=== PATIENT | female | born 1975 | race Caucasian/White ===

== ENCOUNTER → 2016-10-31 | Outpatient (CLI) | payer BC ==
--- NOTE | 2016-11-01 08:39 | MM ---
Reason for exam: clinical finding. Last mammogram was performed 3 years and 4 months ago. History: Family history of breast cancer in mother at age 57. Taking hormonal contraceptives for 1 year. Physical Findings: Nurse Summary: 0.5cm nodule in the left breast at 6 o'clock (nurse ilana). MG Diagnostic Mammo w CAD CLAY Bilateral CC and MLO view(s) were taken. Prior study comparison: June 19, 2013, bilateral digital screening mammo w/CAD. The breast tissue is heterogeneously dense. This may lower the sensitivity of mammography. No significant new findings when compared with previous films. These results were verbally communicated with the patient and result sheet given to the patient on 10/31/16. ASSESSMENT: Incomplete: need additional imaging evaluation, BI-RAD 0 RECOMMENDATION: Ultrasound of the left breast.
== END | disposition home or self-care (01) ==
LOC: RADMAMWWP 12:39
PROVIDERS: ATTEND Obstetrics & Gynecology
DX: Z12.31 Encounter for screening mammogram for malignant neoplasm of breast (principal)

== ENCOUNTER → 2016-11-04 | Outpatient (CLI) | payer BC ==
--- NOTE | 2016-11-04 11:14 | USB ---
Reason for exam: clinical finding. History: Family history of breast cancer in mother at age 57. Taking hormonal contraceptives for 1 year. Indicated problem(s): palpable abnormality in the left breast. Physical Findings: Nurse Summary: Patient states appointment with Dr. Claros made prior to first mammogram/ultrasound. Patient currently feeling area of "dense" tissue (nurse dw). US Breast Limited LT Left breast ultrasound demonstrates no cystic or solid lesion seen. These results were verbally communicated with the patient and result sheet given to the patient on 11/04/16. ASSESSMENT: Negative, BI-RAD 1 RECOMMENDATION: Routine screening mammogram of both breasts in 1 year. Manage patient on a clinical basis. Back on schedule.
== END | disposition home or self-care (01) ==
LOC: RADUSWWP 10:01
PROVIDERS: ATTEND Surgery
DX: N63 Unspecified lump in breast (principal)

== ENCOUNTER 2017-08-21 08:35 | Day surgery (SDC) | payer BC ==
[2017-08-17 10:39] VITALS: BMI 37.8
--- NOTE | 2017-08-20 18:53 | HP ---
HISTORY AND PHYSICAL REASON FOR ADMISSION: Surgery is scheduled for 08/21/2017. HISTORY OF PRESENT ILLNESS: Marlyn Cannon is a 41-year-old patient seen with left shoulder adhesive capsulitis. Options regarding treatment were discussed with her. She elected to proceed with manipulation under anesthesia left shoulder with steroid injection. Consent was obtained. PAST MEDICAL HISTORY: Asthma. PAST SURGICAL HISTORY: Appendectomy, section. MEDICATIONS: Ortho Tri-Cyclen, , Topamax. ALLERGIES: LAMICTAL, SULFA. SOCIAL HISTORY: Patient denies tobacco use. PHYSICAL EXAMINATION: Evaluation of left shoulder flexion is 100 degrees, abduction 70 degrees, external rotation is -10 degrees of neutral. Tenderness along the rotator cuff insertion site and the acromioclavicular joint. Impingement sign positive 80 degrees. Distal neurovascular exam is intact. RADIOGRAPHS: Left shoulder radiographs revealed a lateral downsloping anterior acromion. MRI left shoulder revealed a partial rotator cuff tear. IMPRESSION: Left shoulder adhesive capsulitis. PLAN: Manipulation under anesthesia, left shoulder steroid injection. scheduled for 08/21/2017. MMODL / IJN: [id number] /
[~2017-08-21 08:35] MED LIST: LACTATED RINGERS 1,000 ML IV SCH; MIDAZOLAM 2 MG/2 ML VIAL IV PRN; MORPHINE SULFATE 4 MG/ML SYRINGE IV PRN; ONDANSETRON 4 MG/2 ML VIAL IVP ONE; ceFAZolin IN SWFI 2 GM/20 ML SYRINGE IVP ONE
[2017-08-21] MEDS ORDERED: MIDAZOLAM 2 MG/2 ML VIAL ONE (09:35)
[2017-08-21] MEDS ORDERED: PROPOFOL 10 MG/ML 20 ML VIAL IV ONE (09:35)
[2017-08-21] MEDS ORDERED: fentaNYL (PF) 50 MCG/ML 2 ML AMP ONE (09:35)
[2017-08-21] MEDS ORDERED: KETOROLAC 30 MG/ML 1 ML VIAL ONE (09:35)
[2017-08-21 09:42] VITALS: TEMP 97
[2017-08-21] MEDS ORDERED: BUPIVACAINE (PF) 0.25% 30 ML VIAL MISCELLANE ONE (09:42)
[2017-08-21] MEDS ORDERED: methylPREDNISolone ACETATE 80 MG/ML 1 ML VIAL IM ONE (09:42)
--- NOTE | 2017-08-21 09:48 | P.OP ---
Date of Procedure: 08/21/17 Preoperative Diagnosis: Left shoulder adhesive capsulitis Postoperative Diagnosis: Left shoulder adhesive capsulitis Procedure(s) Performed: Manipulation under anesthesia left shoulder with steroid injection Implants: None Anesthesia: MAC Surgeon: Christopher Jain Estimated Blood Loss (ml): 0 Pathology: none sent Condition: stable Disposition: PACU Indications for Procedure: 41-year-old patient seen with symptomatic left shoulder adhesive capsulitis. I recommended manipulation with steroid injection, patient was agreeable and consent was obtained. Operative Findings: See description of procedure Description of Procedure: The patient was taken to a monitored anesthesia area. The patient underwent IV sedation by the department of anesthesia. Once sufficient adequate anesthesia was noted a manipulation of the left shoulder was performed. I was able to obtain 170 of flexion, 170 of abduction, 70 of external rotation and adequate internal rotation. The anterior aspect of the left shoulder was now prepped and draped in the normal sterile orthopedic fashion. I injected a solution 1 mL Depo-Medrol and 3 mL quarter percent plain Marcaine left shoulder intra-articular glenohumeral joint. A sterile Band-Aid was applied. The patient was awakened having tolerated the procedure well.
[2017-08-21] MEDS ORDERED: HYDROmorphone 1 MG/ML 1 ML SYRINGE IVP ONE ×4 (09:50→10:05)
[2017-08-21] MEDS ORDERED: MIDAZOLAM 2 MG/2 ML VIAL IVP ONE ×2 (10:00→10:15)
[2017-08-21] MEDS ORDERED: diphenhydrAMINE 50 MG/ML 1 ML VIAL IVP ONE (10:00)
[2017-08-21] MEDS ORDERED: MEPERIDINE 50 MG/ML SYRINGE IVP ONE (10:48)
[2017-08-21] MEDS ORDERED: LACTATED RINGERS 1,000 ML IV ONE (10:50)
[2017-08-21 11:11] VITALS: RESP 18
[2017-08-21 11:25] VITALS: BP 128/68; PULSE 64
== END 2017-08-21 11:45 | disposition home or self-care (01) ==
LOC: OR 08:35
PROVIDERS: ATTEND Orthopaedic Surgery
DX: M75.02 Adhesive capsulitis of left shoulder (principal); J45.909 Unspecified asthma, uncomplicated; G43.909 Migraine, unspecified, not intractable, without status migrainosus; F32.9 Major depressive disorder, single episode, unspecified; Z88.2 Allergy status to sulfonamides; Z91.040 Latex allergy status; Z88.8 Allergy status to other drugs, medicaments and biological substances; Z79.3 Long term (current) use of hormonal contraceptives; Z79.1 Long term (current) use of non-steroidal anti-inflammatories (NSAID); Z79.899 Other long term (current) drug therapy
CPT/HCPCS: 23700; 20610; J2250; J1200; J1040; J2175; J2405; J3010; J1885; J1170; J2704

== ENCOUNTER → 2017-10-26 | Outpatient (CLI) | payer BC ==
--- NOTE | 2017-10-26 14:17 | SFUN ---
SLEEP STUDY FOLLOW UP NOTE DATE OF SERVICE: 10/26/2017 A 42-year-old lady who has been followed in the [facility] for treatment of obstructive sleep apnea-hypopnea syndrome. Recently patient received her CPAP unit and she is able to use equipment every night without problems related to mask fitting or humidification. She feels that she does not need to use REM sleep with O2 for pressure right away. I checked her CPAP unit, usage is 29/30 nights for more than 4 hours. Average usage is 10.9 hours. Average pressure is 11.5 cm of water. The range is between 5 and 20. Leak is 10 L/minute which is totally acceptable. Apnea-hypopnea index 2.8, which is in normal range. RAMP is 30 minutes. [place] Sleepiness Scale today is 6. MEDICATIONS: Pristiq, Lasix, Topamax, trazodone at bedtime. Baby aspirin, Xanax, . PHYSICAL EXAM: Patient in no distress. BP 127/83, HR 74, RR 16, weight 213, temp 96.8. OROPHARYNX: Extremely low position of soft palate. ABDOMEN: Slightly obese. Neck Supple, no JVD. Thyroid is not palpable. LUNGS Clear to percussion and to auscultation. Good air exchange. No wheezing or rhonchi. HEART S1, S2 regular. No murmurs, gallops, or rubs. EXTREMITIES No clubbing or cyanosis. 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 Cranial nerves 2 to 7 intact. There is no fasciculation or atrophy. noted. No focal deficits observed. IMPRESSION: 1. Obstructive sleep apnea-hypopnea syndrome. Patient continued to use her equipment every night for the whole night. Yazidi on good control with CPAP. Average pressure in the range of 11.5 cm of water, benefitting from treatment. Again demonstrated practically 100% compliance with treatment. 2. Obesity. 3. Anxiety. 4. Bipolar. 5. History of insomnia with difficulties to initiate sleep on treatment with trazodone, which helps the patient to fall asleep normally. PLAN: 1. Continue treatment with CPAP every night. 2. I adjusted ramp in the machine down and explained to patient how to do it by herself. 3. We will change the patient nasal pillow to recommended style [employer]. 4. Losing weight. 5. Sleep hygiene. 6. History does. 7. No driving if feeling sleepiness. Thank you very much for allowing me to participate in the management of your patient. Sincerely, Yovani Mills MD, PhD, FAASM Diplomat of [place] [employer] [place] [employer] Field Service Poultry Technician of [facility] [place] MMODL / SIMIN: [id number] /
== END | disposition home or self-care (01) ==
LOC: SLEEP 13:03
PROVIDERS: ATTEND Internal Medicine
DX: G47.33 Obstructive sleep apnea (adult) (pediatric) (principal); E66.9 Obesity, unspecified; F41.9 Anxiety disorder, unspecified; F31.9 Bipolar disorder, unspecified; Z99.89 Dependence on other enabling machines and devices; Z79.899 Other long term (current) drug therapy; Z79.82 Long term (current) use of aspirin

== ENCOUNTER 2018-04-11 09:09 | Emergency (ER) | payer OTHER, BC ==
[2018-04-11 09:27] VITALS: TEMP 97.6
[2018-04-11] MEDS ORDERED: ACETAMINOPHEN TAB 325 MG TAB PO STA (09:35)
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
--- NOTE | 2018-04-11 11:26 | XR ---
Shoulder HISTORY: Trauma and pain 3 views of the left shoulder There is mild superior displacement of the distal clavicle in relation to the acromion. Bone minerali zation is maintained. No fracture or dislocation evident. Left lung apex as visualized is normal. IMPRESSION: Findings suggest acromioclavicular separation.
[2018-04-11 12:00] VITALS: BP 134/65; PULSE 80; RESP 18
== END 2018-04-11 12:00 | disposition home or self-care (01) ==
LOC: EC 09:09
DX: S43.102A Unspecified dislocation of left acromioclavicular joint, initial encounter (principal); S13.4XXA Sprain of ligaments of cervical spine, initial encounter; Z87.891 Personal history of nicotine dependence; E78.5 Hyperlipidemia, unspecified; G47.30 Sleep apnea, unspecified; F31.9 Bipolar disorder, unspecified; Z79.82 Long term (current) use of aspirin; Z79.3 Long term (current) use of hormonal contraceptives; Z79.899 Other long term (current) drug therapy; Z88.2 Allergy status to sulfonamides; Z91.040 Latex allergy status; Z88.8 Allergy status to other drugs, medicaments and biological substances; V89.2XXA Person injured in unspecified motor-vehicle accident, traffic, initial encounter; Y92.410 Unspecified street and highway as the place of occurrence of the external cause
CPT/HCPCS: 70450; 72125; 99284

== ENCOUNTER 2018-05-07 02:39 | Emergency (ER) | payer BC, OTHER ==
[2018-05-07 02:43] VITALS: RESP 16
[2018-05-07] MEDS ORDERED: ONDANSETRON 4 MG/2 ML VIAL IVP STA (03:14)
[2018-05-07] MEDS ORDERED: MORPHINE SULFATE 4 MG/ML SYRINGE IV STA (03:14)
[2018-05-07] MEDS ORDERED: SODIUM CHLORIDE 0.9% 1,000 ML IV STA (03:14)
[2018-05-07 03:33] LABS: Basophils % (A) 0 %; Eosinophils # (A) 0.3 k/uL (0-0.7); Eosinophils % (A) 4 %; HCT 42.4 % (34.0-46.0); HGB 13.8 gm/dL (11.4-16.0); Lymphocytes # (A) 2.9 k/uL (1.0-4.8); Lymphocytes % (A) 36 %; MCH 29.9 pg (25.0-35.0); MCHC 32.6 g/dL (31.0-37.0); MCV 91.7 fL (80.0-100.0); Mean Platelet Volume 7.2; Monocytes # (A) 0.4 k/uL (0-1.0); Monocytes % (A) 5 %; Neutrophils # (A) 4.4 k/uL (1.3-7.7); Neutrophils % (A) 54 %; Platelet Count 259 k/uL (150-450); RBC 4.62 m/uL (3.80-5.40); RDW 13.5 % (11.5-15.5); WBC 8.2 k/uL (3.8-10.6)
[2018-05-07 03:35] LABS: Appearance,Urine Clear (Clear); Bilirubin,Urine Negative (Negative); Blood,Urine Large (Negative); Color,Urine Yellow; Glucose,Urine (UA) Negative (Negative); Ketones,Urine Negative (Negative); Leukocyte Esterase,Urine Negative (Negative); Nitrite,Urine Negative (Negative); PH, Urine 6.5 (5.0-8.0); Protein,Urine Negative (Negative); RBC,Urine 9 /hpf (0-5); Specific Gravity,Urine 1.015 (1.001-1.035); Squamous Epithelial Cell,Urine 1 /hpf (0-4); Urobilinogen,Urine <2.0 mg/dL (<2.0); WBC,Urine 2 /hpf (0-5)
[2018-05-07 03:42] LABS: Calcium 9.1 mg/dL (8.4-10.2); Potassium 3.9 mmol/L (3.5-5.1); Total Bilirubin 0.4 mg/dL (0.2-1.3); Total Protein 6.8 g/dL (6.3-8.2)
[2018-05-07 03:52] LABS: Creatine Kinase 54 U/L (30-135)
[2018-05-07 04:05] LABS: Creatine Kinase MB 0.3 ng/mL (0.0-2.4); Troponin I <0.012 ng/mL (0.000-0.034)
[2018-05-07] MEDS ORDERED: MAG HYDROX/AL HYDROX/SIMETH 30 ML, HYOSCYAMINE ELIXIR 10 ML, CIMETIDINE HCL 300 MG, LID... PO STA ×4 (04:12)
[2018-05-07] MEDS ORDERED: MORPHINE SULFATE 4 MG/ML SYRINGE IVP STA (04:37)
--- NOTE | 2018-05-07 04:42 | ED ---
Abdominal Pain HPI - General Chief Complaint: Abdominal Pain Stated Complaint: abd/back pain Time Seen by Provider: 05/07/18 02:48 Source: patient Mode of arrival: ambulatory Limitations: no limitations - History of Present Illness Initial Comments: 42-year-old female patient presents the emergency department today for evaluation of epigastric abdominal pain that radiates through to her back. She describes the pain as a sharp pain that is coming in waves. Patient states she is nauseated with this but has not vomited. Patient states that the pain started at 7 PM this evening. Denies any history of similar symptoms. Patient denies any fevers or chills with this. Denies any constipation or diarrhea. Denies any hematuria, dysuria, urinary frequency, urinary urgency. Patient states she is currently on her period. Patient states that she has had C- section and appendectomy in the past. Patient denies any recent rash, shortness breath, chest pain, numbness, tingling, dizziness, weakness, hematuria , dysuria, urinary urgency, urinary frequency, headache, visual changes, or any other complaints. - Related Data Home Medications Medication Instructions Recorded Confirmed Desvenlafaxine Succinate [Pristiq] 100 mg PO QAM 08/17/17 04/11/18 Norgestimate-Ethinyl Estradiol 1 tab PO QAM 08/17/17 04/11/18 [Ortho Tri-Cyclen 28 Tablet] RX: Topiramate [Topamax] 100 mg PO HS 08/17/17 04/11/18 ALPRAZolam [Xanax] 0.25 mg PO DAILY PRN 04/11/18 04/11/18 Aspirin EC [Ecotrin Low Dose] 81 mg PO HS 04/11/18 04/11/18 Atorvastatin [Lipitor] 20 mg PO DAILY 04/11/18 04/11/18 Brexpiprazole [Rexulti] 0.5 mg PO HS 04/11/18 04/11/18 Loratadine-Pseudoeph 5-120 mg 1 tab PO Q12HR PRN 04/11/18 04/11/18 [Claritin-D 12 HR] [employer]-3 Fatty Acids/Fish Oil [Fish 1 cap PO DAILY 04/11/18 04/11/18 Oil 1,000 mg Softgel] RX: traZODone HCL 50 mg PO HS 04/11/18 04/11/18 Previous Rx's Medication Instructions Recorded RX: Ibuprofen [Motrin] 600 mg PO Q8HR PRN #30 tab 04/11/18 Allergies Allergy/AdvReac Type Severity Reaction Status Date / Time lamotrigine [From Lamictal] Allergy Rash/Hives Verified 05/07/18 02:42 latex Allergy Itching Verified 05/07/18 02:42 Sulfa (Sulfonamide Allergy Rash/Hives Verified 05/07/18 02:42 Antibiotics) Review of Systems ROS Statement: Those systems with pertinent positive or pertinent negative responses have been documented in the HPI. ROS Other: All systems not noted in ROS Statement are negative. Past Medical History Past Medical History: Hyperlipidemia, Mitral Valve Prolapse (MVP), Sleep Apnea/ CPAP/BIPAP Past Surgical History: Appendectomy Additional Past Surgical History / Comment(s): 2 , frozen shoulder release left Past Psychological History: Bipolar Smoking Status: Former smoker Past Alcohol Use History: Occasional Past Drug Use History: None Reported General Exam Limitations: no limitations General appearance: alert, in no apparent distress, other (This is a well- developed, well-nourished adult female patient in no acute distress. Vital signs upon presentation are temperature 97.7F, pulse 72, respirations 16, blood pressure 130/82, pulse ox 99% on room air.) Eye exam: Present: normal appearance, PERRL, EOMI. Absent: scleral icterus, conjunctival injection, periorbital swelling ENT exam: Present: normal exam, normal oropharynx, mucous membranes moist Respiratory exam: Present: normal lung sounds bilaterally. Absent: respiratory distress, wheezes, rales, rhonchi, stridor Cardiovascular Exam: Present: regular rate, normal rhythm, normal heart sounds. Absent: systolic murmur, diastolic murmur, rubs, gallop, clicks GI/Abdominal exam: Present: soft, normal bowel sounds. Absent: distended, tenderness, guarding, rebound, rigid Neurological exam: Present: alert, oriented X3, CN II-XII intact Psychiatric exam: Present: normal affect, normal mood Skin exam: Present: warm, dry, intact, normal color. Absent: rash Course Vital Signs 05/07/18 05/07/18 02:40 04:22 Temperature 97.7 F Pulse Rate 72 63 Respiratory 16 16 Rate Blood Pressure 130/82 136/72 O2 Sat by Pulse 99 100 Oximetry Medical Decision Making - Medical Decision Making 42-year-old female patient presented to the emergency department today for evaluation of upper abdominal pain. Physical examination did reveal some mild epigastric tenderness. Labs reviewed and are unremarkable. Urinalysis did show 6 red blood cells however patient is currently on her period. Vital signs are stable, patient is afebrile. Patient was given IV fluids and pain medication here in the department. Patient was going to be discharged home however upon reevaluation she continued to have pain she described as "severe". Patient was given a GI cocktail for possibility of gastritis. Patient states this worsened her symptoms. Did perform CT abdomen and pelvis at this time. Report was reviewed in its entirety and did show large stool throughout the colon, evidence of diverticulosis with no evidence of diverticulitis. Appendix is not visualized however patient has had appendectomy. I did discuss findings and results with the patient. We did discuss constipation as a possible cause of her symptoms however she is instructed to follow-up with her primary care physician for further evaluation of her abdominal pain. She'll be given up bottle of magnesium citrate to 8 in having a bowel movement. Return parameters were discussed in detail per to verbalizes understanding and agrees with this plan. - Lab Data Result diagrams: 05/07/18 03:23 05/07/18 03:23 Lab Results 05/07/18 05/07/18 05/07/18 Range/Units 03:23 03:23 03:23 WBC 8.2 (3.8-10.6) k/uL RBC 4.62 (3.80-5.40) m/uL Hgb 13.8 (11.4-16.0) gm/dL Hct 42.4 (34.0-46.0) % MCV 91.7 (80.0-100.0) fL MCH 29.9 (25.0-35.0) pg MCHC 32.6 (31.0-37.0) g/dL RDW 13.5 (11.5-15.5) % Plt Count 259 (150-450) k/uL Neutrophils % 54 % Lymphocytes % 36 % Monocytes % 5 % Eosinophils % 4 % Basophils % 0 % Neutrophils # 4.4 (1.3-7.7) k/uL Lymphocytes # 2.9 (1.0-4.8) k/uL Monocytes # 0.4 (0-1.0) k/uL Eosinophils # 0.3 (0-0.7) k/uL Basophils # 0.0 (0-0.2) k/uL Sodium 139 (137-145) mmol/L Potassium 3.9 (3.5-5.1) mmol/L Chloride 111 H (98-107) mmol/L Carbon Dioxide 19 L (22-30) mmol/L Anion Gap 9 mmol/L BUN 19 H (7-17) mg/dL Creatinine 0.95 (0.52-1.04) mg/dL Est GFR (CKD-EPI)AfAm 85 (>60 ml/min/1.73 sqM) Est GFR (CKD-EPI)NonAf 74 (>60 ml/min/1.73 sqM) Glucose 101 H (74-99) mg/dL Calcium 9.1 (8.4-10.2) mg/dL Total Bilirubin 0.4 (0.2-1.3) mg/dL AST 22 (14-36) U/L ALT 33 (9-52) U/L Alkaline Phosphatase 69 (38-126) U/L Total Creatine Kinase 54 (30-135) U/L CK-MB (CK-2) 0.3 (0.0-2.4) ng/mL CK-MB (CK-2) Rel Index 0.6 Troponin I <0.012 (0.000-0.034) ng/mL Total Protein 6.8 (6.3-8.2) g/dL Albumin 4.0 (3.5-5.0) g/dL Amylase 60 (30-110) U/L Lipase 103 (23-300) U/L Urine Color Urine Appearance (Clear) Urine pH (5.0-8.0) Ur Specific [place] (1.001-1.035) Urine Protein (Negative) Urine Glucose (UA) (Negative) Urine Ketones (Negative) Urine Blood (Negative) Urine Nitrite (Negative) Urine Bilirubin (Negative) Urine Urobilinogen (<2.0) mg/dL Ur Leukocyte Esterase (Negative) Urine RBC (0-5) /hpf Urine WBC (0-5) /hpf Ur Squamous Epith Cells (0-4) /hpf Urine HCG, Qual (Not Detectd) 05/07/18 05/07/18 Range/Units 03:23 03:23 WBC (3.8-10.6) k/uL RBC (3.80-5.40) m/uL Hgb (11.4-16.0) gm/dL Hct (34.0-46.0) % MCV (80.0-100.0) fL MCH (25.0-35.0) pg MCHC (31.0-37.0) g/dL RDW (11.5-15.5) % Plt Count (150-450) k/uL Neutrophils % % Lymphocytes % % Monocytes % % Eosinophils % % Basophils % % Neutrophils # (1.3-7.7) k/uL Lymphocytes # (1.0-4.8) k/uL Monocytes # (0-1.0) k/uL Eosinophils # (0-0.7) k/uL Basophils # (0-0.2) k/uL Sodium (137-145) mmol/L Potassium (3.5-5.1) mmol/L Chloride (98-107) mmol/L Carbon Dioxide (22-30) mmol/L Anion Gap mmol/L BUN (7-17) mg/dL Creatinine (0.52-1.04) mg/dL Est GFR (CKD-EPI)AfAm (>60 ml/min/1.73 sqM) Est GFR (CKD-EPI)NonAf (>60 ml/min/1.73 sqM) Glucose (74-99) mg/dL Calcium (8.4-10.2) mg/dL Total Bilirubin (0.2-1.3) mg/dL AST (14-36) U/L ALT (9-52) U/L Alkaline Phosphatase (38-126) U/L Total Creatine Kinase (30-135) U/L CK-MB (CK-2) (0.0-2.4) ng/mL CK-MB (CK-2) Rel Index Troponin I (0.000-0.034) ng/mL Total Protein (6.3-8.2) g/dL Albumin (3.5-5.0) g/dL Amylase (30-110) U/L Lipase (23-300) U/L Urine Color Yellow Urine Appearance Clear (Clear) Urine pH 6.5 (5.0-8.0) Ur Specific [place] 1.015 (1.001-1.035) Urine Protein Negative (Negative) Urine Glucose (UA) Negative (Negative) Urine Ketones Negative (Negative) Urine Blood Large H (Negative) Urine Nitrite Negative (Negative) Urine Bilirubin Negative (Negative) Urine Urobilinogen <2.0 (<2.0) mg/dL Ur Leukocyte Esterase Negative (Negative) Urine RBC 9 H (0-5) /hpf Urine WBC 2 (0-5) /hpf Ur Squamous Epith Cells 1 (0-4) /hpf Urine HCG, Qual Not Detected (Not Detectd) - EKG Data -: EKG Interpreted by Me EKG Comments: EKG obtained at 03 39 shows normal sinus rhythm. Ventricular rate is 63, OK interval 166, QRS duration 80, QT 436, QTc 446. No evidence of ST elevation or depression. - Radiology Data Radiology results: report reviewed, image reviewed CT abdomen and pelvis with contrast was obtained. Report was reviewed in its entirety. Impression by Dr. Nolasco shows mild diverticulosis without evidence of diverticulitis. Large amount of stool throughout the colon. Disposition Clinical Impression: Abdominal pain Disposition: HOME SELF-CARE Condition: Good Instructions: High Fiber Diet (ED), Abdominal Pain (ED) Additional Instructions: Increase fruits and vegetables in the diet. Increase fluids. Take medications as directed. Follow-up through primary care physician for further evaluation. Return here immediately for any new, worsening, or concerning symptoms. Is patient prescribed a controlled substance at d/c from ED?: No Referrals: Bella Couch MD [Primary Care Provider] - 1-2 days Time of Disposition: 05:24
--- NOTE | 2018-05-07 05:22 | CT ---
EXAM: CT Abdomen and Pelvis With Intravenous Contrast CLINICAL HISTORY: ITS.REASON CT Reason: Pain TECHNIQUE: Axial computed tomography images of the abdomen and pelvis with intravenous contrast. CTDI is 16.00+16.80 mGy and DLP is 1136.9 mGy-cm. This CT exam was performed using one or more of the following dose reduction techniques: automated exposure control, adjustment of the mA and/or kV according to patient size, and/or use of iterative reconstruction technique. COMPARISON: No relevant prior studies available. FINDINGS: Lung bases: Unremarkable. No mass. No consolidation. ABDOMEN: Liver: Unremarkable. No mass. Gallbladder and bile ducts: Unremarkable. No calcified stones. No ductal dilation. Pancreas: Unremarkable. No evidence of mass. No ductal dilation. Spleen: Unremarkable. No splenomegaly. Adrenals: Unremarkable. No mass. Kidneys and ureters: Unremarkable. No solid mass. No hydronephrosis. Stomach and bowel: Mild diverticulosis without evidence of diverticulitis. Large amount of stool throughout the colon. PELVIS: Appendix: The appendix is not identified of certainty. Bladder: Unremarkable. No evidence of mass. Reproductive: Unremarkable as visualized. ABDOMEN and PELVIS: Intraperitoneal space: Unremarkable. No free air. No significant fluid collection. Bones/joints: No acute fracture. Soft tissues: Unremarkable. Vasculature: Unremarkable. No abdominal aortic aneurysm. Lymph nodes: Unremarkable. No enlarged lymph nodes. IMPRESSION: 1. Mild diverticulosis without evidence of diverticulitis. 2. Large amount of stool throughout the colon. 3. The appendix is not identified of certainty. If there is strong suspicion for acute appendicitis, oral contrast may be beneficial for further evaluation.
[2018-05-07] MEDS ORDERED: MAGNESIUM CITRATE 296 ML BOTTLE PO ONE (05:24)
[2018-05-07 05:32] VITALS: BP 110/57; PULSE 68; TEMP 97.2
== END 2018-05-07 05:36 | disposition home or self-care (01) ==
LOC: EC 02:39
DX: R10.13 Epigastric pain (principal); R11.0 Nausea; K57.90 Diverticulosis of intestine, part unspecified, without perforation or abscess without bleeding; E78.5 Hyperlipidemia, unspecified; G47.30 Sleep apnea, unspecified; F31.9 Bipolar disorder, unspecified; Z99.89 Dependence on other enabling machines and devices; Z90.49 Acquired absence of other specified parts of digestive tract; Z87.891 Personal history of nicotine dependence; Z79.3 Long term (current) use of hormonal contraceptives; Z79.899 Other long term (current) drug therapy; Z88.2 Allergy status to sulfonamides; Z88.8 Allergy status to other drugs, medicaments and biological substances; Z91.040 Latex allergy status
CPT/HCPCS: 36415; 80053; 82150; 82550; 82553; 83690; 84484; 85025; 81001; 81025; 74177; 99284; 96374; 96375; 96376; 96361; J2270; J2405; Q9967

== ENCOUNTER 2018-05-09 13:54 | Emergency (ER) | payer BC ==
[2018-05-09] MEDS ORDERED: SODIUM CHLORIDE 0.9% 1,000 ML IV STA (15:24)
[2018-05-09] MEDS ORDERED: KETOROLAC 30 MG/ML 1 ML VIAL IVP STA (15:24)
[2018-05-09 15:32] LABS: Basophils % (A) 0 %; Eosinophils # (A) 0.2 k/uL (0-0.7); Eosinophils % (A) 3 %; HCT 44.2 % (34.0-46.0); HGB 14.8 gm/dL (11.4-16.0); Lymphocytes # (A) 2.4 k/uL (1.0-4.8); Lymphocytes % (A) 34 %; MCH 30.2 pg (25.0-35.0); MCHC 33.5 g/dL (31.0-37.0); MCV 90.1 fL (80.0-100.0); Mean Platelet Volume 7.3; Monocytes # (A) 0.3 k/uL (0-1.0); Monocytes % (A) 4 %; Neutrophils # (A) 4.1 k/uL (1.3-7.7); Neutrophils % (A) 58 %; Platelet Count 283 k/uL (150-450); RBC 4.91 m/uL (3.80-5.40); RDW 13.3 % (11.5-15.5); WBC 7.1 k/uL (3.8-10.6)
[2018-05-09 15:36] LABS: Appearance,Urine Clear (Clear); Bilirubin,Urine Negative (Negative); Blood,Urine Small (Negative); Color,Urine Colorless; Glucose,Urine (UA) Negative (Negative); Ketones,Urine Negative (Negative); Leukocyte Esterase,Urine Negative (Negative); Nitrite,Urine Negative (Negative); PH, Urine 6.5 (5.0-8.0); Protein,Urine Negative (Negative); RBC,Urine <1 /hpf (0-5); Specific Gravity,Urine 1.004 (1.001-1.035); Squamous Epithelial Cell,Urine <1 /hpf (0-4); Urobilinogen,Urine <2.0 mg/dL (<2.0); WBC,Urine <1 /hpf (0-5)
[2018-05-09 15:41] LABS: Albumin 4.6 g/dL (3.5-5.0); Calcium 9.8 mg/dL (8.4-10.2); Potassium 4.1 mmol/L (3.5-5.1); Total Bilirubin 0.3 mg/dL (0.2-1.3); Total Protein 7.5 g/dL (6.3-8.2)
[2018-05-09] MEDS ORDERED: ONDANSETRON 4 MG/2 ML VIAL IVP STA (15:44)
[2018-05-09] MEDS ORDERED: DICYCLOMINE 10 MG/ML 2 ML AMP IM STA (16:27)
[2018-05-09] MEDS ORDERED: METOCLOPRAMIDE 5 MG/ML 2 ML VIAL IVP STA (17:01)
[2018-05-09] MEDS ORDERED: MORPHINE SULFATE 4 MG/ML SYRINGE IVP STA (17:01)
--- NOTE | 2018-05-09 17:08 | US ---
EXAMINATION TYPE: US abdomen complete DATE OF EXAM: 05/09/2018 COMPARISON: CT CLINICAL HISTORY: Pain. EC patient with epigastric pain since Monday; patient ate at noon grain/veget able meal with creme fraiche and cheese EXAM MEASUREMENTS: Liver Length: 9.7 cm Gallbladder Wall: 0.2 cm CBD: 0.3 cm Spleen: 11.1 cm Right Kidney: 9.9 x 5.5 x 4.1 cm Left Kidney: 9.7 x 5.2 x 5.0 cm Pancreas: hyperechoic Liver: wnl Gallbladder: may be partially contracted from noon meal; wall is wnl; no stones or sludge seen Evidence for sonographic Toth's sign: yes CBD: wnl Spleen: wnl Right Kidney: wnl Left Kidney: wnl Upper IVC: wnl Abd Aorta: wnl IMPRESSION: Negative complete abdominal sonogram. No gallstones or dilated ducts. No free fluid.
--- NOTE | 2018-05-09 18:06 | ED ---
General Adult HPI - General Chief complaint: Abdominal Pain Stated complaint: gall bladder attack Time Seen by Provider: 05/09/18 15:06 Source: patient, RN notes reviewed Mode of arrival: ambulatory Limitations: no limitations - History of Present Illness Initial comments: 42-year-old female since to the emergency department for a chief complaint of upper abdominal pain. Patient states this has been ongoing for about one week. She describes pain as intermittent in nature. She states it is a sharp burning pain in the epigastric and right upper quadrant area that radiates around the right side to her back. Patient states the pain is worsened after eating. Patient also admits to nausea but denies any vomiting. Patient denies any fevers or chills at home. Patient has had an appendectomy but has not had a cholecystectomy. No history of ulcers. Patient was seen here 2 days ago and was diagnosed with constipation. Patient took magnesium citrate and has been having regular bowel movements. She is passing gas normally. Patient denies any chest pain pressure or shortness of breath. Patient denies any history of cardiac disease. Patient has no other complaints at this time including shortness of breath, chest pain, abdominal pain, nausea or vomiting, headache, or visual changes. - Related Data Home Medications Medication Instructions Recorded Confirmed Desvenlafaxine Succinate [Pristiq] 100 mg PO QAM 08/17/17 04/11/18 Norgestimate-Ethinyl Estradiol 1 tab PO QAM 08/17/17 04/11/18 [Ortho Tri-Cyclen 28 Tablet] Topiramate [Topamax] 100 mg PO HS 08/17/17 04/11/18 ALPRAZolam [Xanax] 0.25 mg PO DAILY PRN 04/11/18 04/11/18 Aspirin EC [Ecotrin Low Dose] 81 mg PO HS 04/11/18 04/11/18 Atorvastatin [Lipitor] 20 mg PO DAILY 04/11/18 04/11/18 Brexpiprazole [Rexulti] 0.5 mg PO HS 04/11/18 04/11/18 Loratadine-Pseudoeph 5-120 mg 1 tab PO Q12HR PRN 04/11/18 04/11/18 [Claritin-D 12 HR] [place]-3 Fatty Acids/Fish Oil [Fish 1 cap PO DAILY 04/11/18 04/11/18 Oil 1,000 mg Softgel] traZODone HCL 50 mg PO HS 04/11/18 04/11/18 Previous Rx's Medication Instructions Recorded Ibuprofen [Motrin] 600 mg PO Q8HR PRN #30 tab 04/11/18 Ondansetron [Zofran ODT] 4 mg PO Q8HR PRN #15 tab 05/09/18 Pantoprazole Sodium [Protonix] 40 mg PO DAILY #10 tablet. 05/09/18 Allergies Allergy/AdvReac Type Severity Reaction Status Date / Time lamotrigine [From Lamictal] Allergy Rash/Hives Verified 05/07/18 02:42 latex Allergy Itching Verified 05/07/18 02:42 Sulfa (Sulfonamide Allergy Rash/Hives Verified 05/07/18 02:42 Antibiotics) Review of Systems ROS Statement: Those systems with pertinent positive or pertinent negative responses have been documented in the HPI. ROS Other: All systems not noted in ROS Statement are negative. Past Medical History Past Medical History: Hyperlipidemia, Mitral Valve Prolapse (MVP), Sleep Apnea/ CPAP/BIPAP History of Any Multi-Drug Resistant Organisms: None Reported Past Surgical History: Appendectomy Additional Past Surgical History / Comment(s): 2 , frozen shoulder release left Past Psychological History: Bipolar Smoking Status: Never smoker Past Alcohol Use History: Occasional Past Drug Use History: None Reported General Exam Limitations: no limitations General appearance: alert (Patient pleasant and interactive. She is cooperative and answering questions), in no apparent distress Head exam: Present: atraumatic, normocephalic, normal inspection Eye exam: Present: normal appearance, PERRL, EOMI. Absent: scleral icterus, conjunctival injection, periorbital swelling, periorbital tenderness ENT exam: Present: normal exam, normal oropharynx, mucous membranes moist, normal external ear exam Neck exam: Present: normal inspection, full ROM. Absent: tenderness, meningismus, lymphadenopathy, thyromegaly Respiratory exam: Present: normal lung sounds bilaterally. Absent: respiratory distress, wheezes, rales, rhonchi, stridor Cardiovascular Exam: Present: regular rate, normal rhythm, normal heart sounds. Absent: systolic murmur, diastolic murmur, rubs, gallop, clicks GI/Abdominal exam: Present: soft, tenderness (Mild tenderness noted to left upper quadrant epigastric and right upper quadrant areas.), normal bowel sounds. Absent: distended, guarding, rebound, rigid, organomegaly, mass, pulsatile mass, hernia Extremities exam: Present: full ROM (Patient moving all extremities without difficulty. Normal color) Back exam: Absent: tenderness, CVA tenderness (R), CVA tenderness (L) Neurological exam: Present: alert, oriented X3, CN II-XII intact Psychiatric exam: Present: normal affect, normal mood Skin exam: Present: warm, dry, intact, normal color. Absent: rash, cyanosis, diaphoretic, pallor Course Vital Signs 05/09/18 05/09/18 05/09/18 14:21 17:54 18:24 Temperature 98.1 F 97.8 F 97.9 F Pulse Rate 86 72 78 Respiratory 18 18 16 Rate Blood Pressure 117/83 115/84 127/80 O2 Sat by Pulse 98 98 98 Oximetry EKG Findings - EKG Comments: EKG Findings:: EKG shows a ventricular rate of 71 with a normal sinus rhythm, MI interval 156, QRS duration 80. No evidence of ST elevation or depression. This was reviewed by myself and Dr. green Medical Decision Making - Medical Decision Making 42-year-old female resents to the emergency department for upper abdominal pain times one week. Patient was seen here in the emergency department for this 3 days ago and diagnosed with constipation. Patient took magnesium citrate has been having normal bowel movements and flatulence. Patient states the pain is a sharp pain in her upper abdomen worsened after eating. Patient was given Toradol in the emergency department as well as morphine which helped with her pain. She was given Zofran and Reglan for nausea which also helped with nausea. Patient was offered a GI cocktail which she refused because she states it paid her pain worse last time. On exam patient has mild epigastric and right upper quadrant and left upper quadrant tenderness. No lower abdominal tenderness. Negative obturator sign. Patient had appendix removed. Negative Toth sign on exam. EKG showed a normal sinus rhythm with no evidence of ST elevation or depression. CBC and CMP are unremarkable. Plasma lactic acid is 0.8 so mesenteric ischemia unlikely. Small blood noted in the urine. Patient had cardiac workup last time she was in the ER which was negative. Discussed this with Dr. Green. Abdomen ultrasound was ordered abdominal aorta within normal limits, gallbladder shows no stones or sludge seen. Negative complete abdominal sonogram. No free fluid. Patient also had a CT 2 days ago which showed stool without any other abnormalities. At this time patient has an appointment with GI in less than one week. Patient is concerned about gallbladder here but discussed lab work and imaging studies do not indicate gallbladder to be the cause of the problem. Patient could have an ulcer or gastritis so was given a prescription for Protonix. She will return if she is any worsening symptoms. Otherwise she will follow-up with GI and primary care. - Lab Data Result diagrams: 05/09/18 15:12 05/09/18 15:12 Lab Results 05/09/18 05/09/18 05/09/18 Range/Units 15:12 15:12 15:12 WBC 7.1 (3.8-10.6) k/uL RBC 4.91 (3.80-5.40) m/uL Hgb 14.8 (11.4-16.0) gm/dL Hct 44.2 (34.0-46.0) % MCV 90.1 (80.0-100.0) fL MCH 30.2 (25.0-35.0) pg MCHC 33.5 (31.0-37.0) g/dL RDW 13.3 (11.5-15.5) % Plt Count 283 (150-450) k/uL Neutrophils % 58 % Lymphocytes % 34 % Monocytes % 4 % Eosinophils % 3 % Basophils % 0 % Neutrophils # 4.1 (1.3-7.7) k/uL Lymphocytes # 2.4 (1.0-4.8) k/uL Monocytes # 0.3 (0-1.0) k/uL Eosinophils # 0.2 (0-0.7) k/uL Basophils # 0.0 (0-0.2) k/uL Sodium 141 (137-145) mmol/L Potassium 4.1 (3.5-5.1) mmol/L Chloride 110 H (98-107) mmol/L Carbon Dioxide 20 L (22-30) mmol/L Anion Gap 11 mmol/L BUN 14 (7-17) mg/dL Creatinine 0.94 (0.52-1.04) mg/dL Est GFR (CKD-EPI)AfAm 86 (>60 ml/min/1.73 sqM) Est GFR (CKD-EPI)NonAf 75 (>60 ml/min/1.73 sqM) Glucose 94 (74-99) mg/dL Plasma Lactic Acid Grabiel (0.7-2.0) mmol/L Calcium 9.8 (8.4-10.2) mg/dL Total Bilirubin 0.3 (0.2-1.3) mg/dL AST 28 (14-36) U/L ALT 37 (9-52) U/L Alkaline Phosphatase 68 (38-126) U/L Total Protein 7.5 (6.3-8.2) g/dL Albumin 4.6 (3.5-5.0) g/dL Amylase 68 (30-110) U/L Lipase 88 (23-300) U/L Urine Color Colorless Urine Appearance Clear (Clear) Urine pH 6.5 (5.0-8.0) Ur Specific [place] 1.004 (1.001-1.035) Urine Protein Negative (Negative) Urine Glucose (UA) Negative (Negative) Urine Ketones Negative (Negative) Urine Blood Small H (Negative) Urine Nitrite Negative (Negative) Urine Bilirubin Negative (Negative) Urine Urobilinogen <2.0 (<2.0) mg/dL Ur Leukocyte Esterase Negative (Negative) Urine RBC <1 (0-5) /hpf Urine WBC <1 (0-5) /hpf Ur Squamous Epith Cells <1 (0-4) /hpf Urine HCG, Qual (Not Detectd) 05/09/18 05/09/18 Range/Units 15:12 15:52 WBC (3.8-10.6) k/uL RBC (3.80-5.40) m/uL Hgb (11.4-16.0) gm/dL Hct (34.0-46.0) % MCV (80.0-100.0) fL MCH (25.0-35.0) pg MCHC (31.0-37.0) g/dL RDW (11.5-15.5) % Plt Count (150-450) k/uL Neutrophils % % Lymphocytes % % Monocytes % % Eosinophils % % Basophils % % Neutrophils # (1.3-7.7) k/uL Lymphocytes # (1.0-4.8) k/uL Monocytes # (0-1.0) k/uL Eosinophils # (0-0.7) k/uL Basophils # (0-0.2) k/uL Sodium (137-145) mmol/L Potassium (3.5-5.1) mmol/L Chloride (98-107) mmol/L Carbon Dioxide (22-30) mmol/L Anion Gap mmol/L BUN (7-17) mg/dL Creatinine (0.52-1.04) mg/dL Est GFR (CKD-EPI)AfAm (>60 ml/min/1.73 sqM) Est GFR (CKD-EPI)NonAf (>60 ml/min/1.73 sqM) Glucose (74-99) mg/dL Plasma Lactic Acid Grabiel 0.8 (0.7-2.0) mmol/L Calcium (8.4-10.2) mg/dL Total Bilirubin (0.2-1.3) mg/dL AST (14-36) U/L ALT (9-52) U/L Alkaline Phosphatase (38-126) U/L Total Protein (6.3-8.2) g/dL Albumin (3.5-5.0) g/dL Amylase (30-110) U/L Lipase (23-300) U/L Urine Color Urine Appearance (Clear) Urine pH (5.0-8.0) Ur Specific [place] (1.001-1.035) Urine Protein (Negative) Urine Glucose (UA) (Negative) Urine Ketones (Negative) Urine Blood (Negative) Urine Nitrite (Negative) Urine Bilirubin (Negative) Urine Urobilinogen (<2.0) mg/dL Ur Leukocyte Esterase (Negative) Urine RBC (0-5) /hpf Urine WBC (0-5) /hpf Ur Squamous Epith Cells (0-4) /hpf Urine HCG, Qual Not Detected (Not Detectd) Disposition Clinical Impression: Abdominal pain Disposition: HOME SELF-CARE Condition: Good Instructions: Abdominal Pain (ED) Additional Instructions: Please take Protonix as directed. Take Zofran as needed for nausea. Please take Tylenol for pain. Please attend your GI appointment on Monday. Follow-up with primary care tomorrow. Return to the emergency department if you have any worsening symptoms. Prescriptions: Ondansetron [Zofran ODT] 4 mg PO Q8HR PRN #15 tab PRN Reason: Nausea Pantoprazole Sodium [Protonix] 40 mg PO DAILY #10 tablet. Is patient prescribed a controlled substance at d/c from ED?: No Referrals: Bella Couch MD [Primary Care Provider] - 1-2 days Time of Disposition: 18:03
[2018-05-09 18:25] VITALS: BP 127/80; PULSE 78; RESP 16; TEMP 97.9
== END 2018-05-09 18:26 | disposition home or self-care (01) ==
LOC: EC 13:54
DX: R10.13 Epigastric pain (principal); R10.11 Right upper quadrant pain; R31.9 Hematuria, unspecified; M54.9 Dorsalgia, unspecified; R14.3 Flatulence; R11.0 Nausea; E78.5 Hyperlipidemia, unspecified; F31.9 Bipolar disorder, unspecified; G47.30 Sleep apnea, unspecified; Z88.2 Allergy status to sulfonamides; Z88.8 Allergy status to other drugs, medicaments and biological substances; Z91.040 Latex allergy status; Z79.3 Long term (current) use of hormonal contraceptives; Z79.82 Long term (current) use of aspirin; Z79.899 Other long term (current) drug therapy; Z86.79 Personal history of other diseases of the circulatory system; Z90.49 Acquired absence of other specified parts of digestive tract; Z99.89 Dependence on other enabling machines and devices
CPT/HCPCS: 36415; 93005; 80053; 82150; 83605; 83690; 85025; 81001; 81025; 76700; 99284; 96374; 96375 ×3; 96361 ×3; 96372; J2270; J0500; J2765; J2405; J1885

== ENCOUNTER → 2019-01-16 | Outpatient (CLI) | payer BC ==
[2019-01-16 16:39] LABS: ALT 17 U/L (8-44); AST 17 U/L (13-35); Sodium 140 mmol/L (135-145)
== END | disposition home or self-care (01) ==
LOC: LABWHC1 08:24
PROVIDERS: ATTEND Psychiatry & Neurology Psychiatry
DX: F31.81 Bipolar II disorder (principal)
CPT/HCPCS: 36415; 80183; 84295; 84450; 84460

== ENCOUNTER → 2019-09-03 | Outpatient (CLI) | payer BC ==
--- NOTE | 2019-09-05 14:14 | MM ---
Reason for exam: screening (asymptomatic). Last mammogram was performed 2 years and 10 months ago. History: Family history of breast cancer in mother at age 57. Taking hormonal contraceptives for 1 year. Physical Findings: A clinical breast exam by your physician is recommended on an annual basis and results should be correlated with mammographic findings. MG 3D Screening Mammo W/Cad Bilateral CC and MLO view(s) were taken. Prior study comparison: October 31, 2016, bilateral MG diagnostic mammo w CAD CLAY. There are scattered fibroglandular densities. No significant changes when compared with prior studies. ASSESSMENT: Negative, BI-RAD 1 RECOMMENDATION: Routine screening mammogram of both breasts in 1 year.
== END | disposition home or self-care (01) ==
LOC: RADMAMWWP 11:12
PROVIDERS: ATTEND Obstetrics & Gynecology
DX: Z12.31 Encounter for screening mammogram for malignant neoplasm of breast (principal)
CPT/HCPCS: 77063; 77067

== ENCOUNTER → 2020-12-18 | Outpatient (CLI) | payer BC ==
--- NOTE | 2020-12-21 14:12 | MM ---
Reason for exam: screening (asymptomatic). Last mammogram was performed 1 year and 4 months ago. History: Family history of breast cancer in mother at age 57. Taking hormonal contraceptives for 1 year. Physical Findings: A clinical breast exam by your physician is recommended on an annual basis and results should be correlated with mammographic findings. MG 3D Screening Mammo W/Cad Bilateral CC and MLO view(s) were taken. Prior study comparison: September 03, 2019, bilateral MG 3d screening mammo w/cad. October 31, 2016, bilateral MG diagnostic mammo w CAD CLAY. The breast tissue is heterogeneously dense. This may lower the sensitivity of mammography. Finding: There is a 6-7 mm indistinct round mass located 7 cm from the nipple in the lower inner quadrant, anterior middle position of the right breast on MLO 53/91 and CC 25/80. 6mm oval density left middle dpeth inner aspect. New finding since September 03, 2019 and October 31, 2016. ASSESSMENT: Incomplete: need additional imaging evaluation, BI-RAD 0 RECOMMENDATION: Special view mammogram of both breasts. If lesion persists on supplemental views, image directed ultrasound is recommended. [facility] will attempt to contact patient to return for supplemental views and ultrasound if indicated.
== END | disposition home or self-care (01) ==
LOC: RADMAMWWP 08:54
PROVIDERS: ATTEND Obstetrics & Gynecology
DX: Z12.31 Encounter for screening mammogram for malignant neoplasm of breast (principal); Z80.3 Family history of malignant neoplasm of breast
CPT/HCPCS: 77063; 77067

== ENCOUNTER → 2020-12-23 | Outpatient (CLI) | payer BC ==
--- NOTE | 2020-12-23 15:12 | MM ---
Reason for exam: additional evaluation requested from abnormal screening. Last mammogram was performed less than 1 month ago. History: Family history of breast cancer in mother at age 57. Took hormonal contraceptives for 1 year. Physical Findings: Nurse did not find any significant physical abnormalities on exam. MG 3D Work Up W/Cad CLAY Bilateral spot compression CC and LM view(s) were taken. Spot compression MLO view(s) were taken of the right breast. Prior study comparison: December 18, 2020, bilateral MG 3d screening mammo w/cad. September 03, 2019, bilateral MG 3d screening mammo w/cad. The breast tissue is heterogeneously dense. This may lower the sensitivity of mammography. Right nodule persists 4 o'clock 6mm, 6cm from nipple. Left nodules persist 8cm from nipple and 6cm from nipple. These results were verbally communicated with the patient and result sheet given to the patient on 12/23/20. ASSESSMENT: Incomplete: need additional imaging evaluation, BI-RAD 0 RECOMMENDATION: Ultrasound of both breasts.
--- NOTE | 2020-12-23 15:14 | USB ---
Reason for exam: additional evaluation requested from abnormal screening. History: Family history of breast cancer in mother at age 57. Took hormonal contraceptives for 1 year. US Breast Workup Limited CLAY Right limited breast ultrasound including focal area of concern, retroareolar and axilla demonstrates no cystic or solid lesion seen. Left limited breast ultrasound including focal area of concern, retroareolar and axilla demonstrates no cystic or solid lesion seen. No distinct mass seen. These results were verbally communicated with the patient and result sheet given to the patient on 12/23/20. ASSESSMENT: Probably benign, BI-RAD 3 RECOMMENDATION: Follow-up diagnostic mammogram of both breasts in 6 months.
== END | disposition home or self-care (01) ==
LOC: RADMAMWWP 13:35
PROVIDERS: ATTEND Obstetrics & Gynecology
DX: N63.20 Unspecified lump in the left breast, unspecified quadrant (principal); N63.10 Unspecified lump in the right breast, unspecified quadrant; Z80.3 Family history of malignant neoplasm of breast
CPT/HCPCS: 77062; 77066

== ENCOUNTER → 2021-03-31 | Outpatient (CLI) | payer BC ==
--- NOTE | 2021-04-02 14:02 | MM ---
Reason for exam: follow-up at short interval from prior study. Last mammogram was performed 3 months ago. History: Family history of breast cancer in mother at age 57. Took hormonal contraceptives for 1 year. Physical Findings: Nurse did not find any significant physical abnormalities on exam. MG 3D Diag Mammo W/Cad CLAY Bilateral CC and MLO view(s) were taken. Prior study comparison: December 23, 2020, bilateral US breast workup limited CLAY. December 23, 2020, bilateral MG 3d work up w/cad CLAY. December 18, 2020, bilateral MG 3d screening mammo w/cad. The breast tissue is heterogeneously dense. This may lower the sensitivity of mammography. There is no discrete abnormality including area of concern marked by patient. Right breast nodule is stable. These results were verbally communicated with the patient and result sheet given to the patient on 03/31/21. ASSESSMENT: Incomplete: need additional imaging evaluation, BI-RAD 0 RECOMMENDATION: Ultrasound of the right breast. Manage on a clinical basis with regard to changes in right breast.
--- NOTE | 2021-04-02 14:04 | USB ---
Reason for exam: additional evaluation requested from abnormal screening. History: Family history of breast cancer in mother at age 57. Took hormonal contraceptives for 1 year. US Breast Limited RT Right limited breast ultrasound including focal area of concern, retroareolar and axilla demonstrates no cystic or solid lesion seen. These results were verbally communicated with the patient and result sheet given to the patient on 03/31/21. ASSESSMENT: Negative, BI-RAD 1 RECOMMENDATION: Follow-up diagnostic mammogram of both breasts in 3 months. (previous 6 month follow up of prior)
== END | disposition home or self-care (01) ==
LOC: RADMAMWWP 06:59
PROVIDERS: ATTEND Surgery
DX: R92.2 Inconclusive mammogram (principal); Z80.3 Family history of malignant neoplasm of breast
CPT/HCPCS: 77062; 77066